=== PATIENT | female | born 1970 | race Caucasian/White ===

== ENCOUNTER 2017-02-16 20:15 | Emergency (ER) | payer OTHER ==
[~2017-02-16] VITALS: Ht 152.4 cm; Wt 66.0 kg
[~2017-02-16 20:15] MED LIST: NO MEDS TAKEN; PREN1TAB49
[2017-02-16 20:34] VITALS: Ht 152.4 cm; Wt 66.0 kg
--- NOTE | 2017-02-17 00:47 | ERD ---
ER Documentation Chief Complaint Date/Time DATE: 02/17/17 TIME: 00:47 Chief Complaint r ear pain for 2 weeks HPI 46-year-old otherwise healthy female presents to the emergency department for complaints of right-sided ear pain 2 weeks. Patient states the pain has gradually worsened and today she reports a constant sharp and stabbing 8 out of 10 to the right ear which is relieved with manipulation of her ear. She notes associated decreased hearing since today. She denies fever, chills, dizziness, nausea, vomiting, cough or congestion. She is attempted to treat her symptoms at home with Motrin with some relief. She denies other complaints at this time. ROS All systems reviewed and are negative except as per history of present illness. Medications Home Meds Active Scripts Naproxen* (Naprosyn*) 500 Mg Tablet, 500 MG PO BID for 7 Days, TAB Prov:CAR MIMS PA-C 02/17/17 Azithromycin* (Azithromycin*) 500 Mg Tablet, 500 MG PO DAILY for 3 Days, TAB Prov:CAR MIMS PA-C 02/17/17 Ciprofloxacin Hcl/Dexameth (Ciprodex Otic Suspension) 7.5 Ml Drops.susp, 10 DROP RIGHT EAR BID, #1 BOTTLE Prov:CAR MIMS PA-C 02/17/17 Reported Medications Vits W-Ca,Fe,Fa(<1MG) () 1 Tab Tablet 06/25/11 [No Meds Taken] No Conflict Check 04/19/11 Allergies Allergies: Coded Allergies: Penicillins (Verified Allergy, Unknown, RASHES, 10/07/11) PMhx/Soc History of Surgery: No Anesthesia Reaction: No Hx Neurological Disorder: No Hx Respiratory Disorders: No Hx Cardiac Disorders: No Hx Psychiatric Problems: No Hx Miscellaneous Medical Probl: No Hx Alcohol Use: No Hx Substance Use: No Hx Tobacco Use: No Smoking Status: Never smoker Physical Exam Vitals Vital Signs Date Time Temp Pulse Resp B/P Pulse Ox O2 Delivery O2 Flow Rate FiO2 02/16/17 20:34 99.0 77 18 127/75 97 Physical Exam Const: Well-developed, well-nourished, in no acute distress Head: Atraumatic Eyes: Normal Conjunctiva ENT: Right sided ear canal swollen with purulent drainage. I was unable to visualize the tympanic membrane due to swelling. Patient states her symptoms were improved with manipulation of the pinna. Left ear canal normal-appearing and left tympanic membrane without erythema or swelling. Normal External Nose and Mouth. No redness or swelling at the right mastoid. Neck: Full range of motion..~ No meningismus. Resp: Clear to auscultation bilaterally Cardio: Regular rate and rhythm, no murmurs Skin: No petechiae or rashes Back: No midline or flank tenderness Ext: No cyanosis, or edema Neur: Awake and alert Psych: Normal Mood and Affect Results 24 hrs Current Medications Medications (Trade) Dose Ordered Sig/Jeancarlos Route PRN Reason Start Time Stop Time Status Last Admin Dose Admin Ceftriaxone Sodium (Rocephin) 1 gm ONCE ONCE IM 02/17/17 01:00 02/17/17 01:01 Ibuprofen (Motrin) 600 mg ONCE ONCE PO 02/17/17 01:00 02/17/17 01:01 Dexamethasone (Decadron) 10 mg ONCE ONCE IM 02/17/17 01:00 02/17/17 01:01 Procedures/MDM This is an otherwise healthy 46-year-old female who presents the emergency department for complaints of right ear pain 2 weeks. Upon arrival patient reports a constant stabbing pain to the right ear and physical exam revealed evidence of ear canal swelling with purulent discharge, consistent with acute otitis externa. I was unable to visualize the right tympanic membrane to rule out right sided otitis media. Patient denies congestion, sinus pressure, cough , fever, chills, or headache. Her physical exam is otherwise unremarkable. Patient received Decadron to reduce the swelling as well as Motrin for pain and 1 dose of antibiotics while in the emergency department. Patient to continue topical Ciprodex and oral antibiotics as well as Naprosyn. Low suspicion for mastoiditis, severe upper respiratory infection, systemic illness or sepsis. Based on patient's history of present illness and physical examination the decision was made to discharge. The patient was re-evaluated after ED treatment and stabilizing measures, and symptoms have improved. There is no evidence of life threatening injuries or illnesses at this time. On re-examination, patient resting in no distress, stable vital signs, reports feeling better and safe for discharge with outpatient follow up with PMD in 1-2 days. Patient given return precautions. Departure Diagnosis: Primary Impression: Right ear pain Additional Impression: Otitis externa Otitis externa type: swimmer's ear Chronicity: acute Laterality: right Qualified Code: H60.331 - Acute swimmer's ear of right side CAR MIMS PA-C Feb 17, 2017 00:47
[2017-02-17] MEDS ORDERED: NAPR-260 PO (00:52)
[2017-02-17] MEDS ORDERED: CIPR7.5D4 RIGHT EAR (00:52)
[2017-02-17] MEDS ORDERED: AZIT500T5 PO (00:52)
[2017-02-17] MEDS ORDERED: CEFTRIAXONE 1 GM INJ IM ONE (01:00)
[2017-02-17] MEDS ORDERED: DEXAMETHASONE 10 MG/ML 1 ML INJ IM ONE (01:00)
[2017-02-17] MEDS ORDERED: IBUPROFEN 600 MG TAB PO ONE (01:00)
[2017-02-17 01:36] VITALS: BP 128/72; PULSE 61; RESP 16; TEMP 98
== END 2017-02-17 01:37 | disposition home or self-care (01) ==
LOC: FTE 20:15
DX: H60.331 Swimmer's ear, right ear (principal)
CPT/HCPCS: 96372; J0696; J1100; Z7502; Z7610